=== PATIENT | female | born 1995 | race Caucasian/White ===

== ENCOUNTER 2018-02-15 22:45 | Emergency (ER) | payer SELFPAY ==
[~2018-02-15] VITALS: Ht 157.5 cm; Wt 80.7 kg
[2018-02-15 23:00] VITALS: Ht 157.5 cm; Wt 80.7 kg
[2018-02-16 00:48] VITALS: BP 128/88
== END 2018-02-16 00:48 | disposition home or self-care (01) ==
LOC: ED 22:45
DX: M54.6 Pain in thoracic spine (principal)

== ENCOUNTER 2018-04-24 00:27 | Emergency (ER) | payer OTHER ==
[~2018-04-24] VITALS: Ht 157.5 cm; Wt 81.4 kg
[2018-04-24 00:51] VITALS: Ht 157.5 cm; Wt 81.4 kg
[2018-04-24 03:43] VITALS: BP 146/58
== END 2018-04-24 04:34 | disposition home or self-care (01) ==
LOC: ED 00:27
DX: K60.2 Anal fissure, unspecified (principal)

== ENCOUNTER 2018-05-31 12:56 | Emergency (ER) | payer OTHER ==
[~2018-05-31] VITALS: Ht 157.5 cm; Wt 77.1 kg
[2018-05-31 13:09] VITALS: Ht 157.5 cm; Wt 77.1 kg
== END 2018-05-31 15:09 | disposition home or self-care (01) ==
LOC: ED 12:56
DX: S90.122A Contusion of left lesser toe(s) without damage to nail, initial encounter (principal); W22.8XXA Striking against or struck by other objects, initial encounter; Y93.89 Activity, other specified; Y92.89 Other specified places as the place of occurrence of the external cause; Y99.8 Other external cause status

== ENCOUNTER 2018-07-23 09:22 | Emergency (ER) | payer OTHER ==
[~2018-07-23] VITALS: Ht 157.5 cm; Wt 79.8 kg
[2018-07-23 09:39] VITALS: Ht 157.5 cm; Wt 79.8 kg
[2018-07-23 10:26] VITALS: BP 106/74
== END 2018-07-23 10:26 | disposition home or self-care (01) ==
LOC: ED 09:22
DX: B34.9 Viral infection, unspecified (principal)
CPT/HCPCS: J1885; Q0162

== ENCOUNTER 2018-11-22 21:49 | Emergency (ER) | payer OTHER | END 2018-11-22 22:39 | disposition left against medical advice (07) | LOC: ED 21:49 | DX: Z53.21 Procedure and treatment not carried out due to patient leaving prior to being seen by health care provider (principal) ==

== ENCOUNTER 2019-03-10 23:08 | Emergency (ER) | payer OTHER ==
[~2019-03-10] VITALS: Ht 157.5 cm; Wt 73.5 kg
[2019-03-10 23:17] VITALS: Ht 157.5 cm; Wt 73.5 kg
[2019-03-11 01:41] VITALS: BP 111/66
== END 2019-03-11 01:41 | disposition home or self-care (01) ==
LOC: ED 23:08
DX: K29.70 Gastritis, unspecified, without bleeding (principal)
CPT/HCPCS: Q0162